=== PATIENT | female | born 1975 | race Caucasian/White ===

== ENCOUNTER 2024-08-15 15:21 | Emergency (ER) | payer SELFPAY ==
[2024-08-15] MEDS: oxyCODONE 5 MG Tab PO STA (16:40)
[2024-08-15] MEDS: Ondansetron 4 MG Tab.DIS PO STA (16:40)
== END 2024-08-15 17:48 | disposition home or self-care (01) ==
LOC: MW.ED 15:21
DX: S00.83XA Contusion of other part of head, initial encounter (principal); S40.021A Contusion of right upper arm, initial encounter; S80.02XA Contusion of left knee, initial encounter; M79.652 Pain in left thigh; Z86.16 Personal history of COVID-19; Z75.8 Other problems related to medical facilities and other health care; Y04.0XXA Assault by unarmed brawl or fight, initial encounter
CPT/HCPCS: 99283; A9270